=== PATIENT | female | born 1965 | race Caucasian/White ===

== ENCOUNTER 2024-03-23 08:17 | Outpatient (CLI) | payer BC | END 2024-03-23 08:18 | disposition home or self-care (01) | LOC: CSHCT 08:17 | PROVIDERS: ATTEND Family Medicine | DX: Z12.2 Encounter for screening for malignant neoplasm of respiratory organs (principal); F17.210 Nicotine dependence, cigarettes, uncomplicated | CPT/HCPCS: 71271 ==